=== PATIENT | female | born 1980 | race Caucasian/White ===

== ENCOUNTER → 2021-09-14 15:50 | Outpatient (BNVA) | payer BC, SELFPAY | PROVIDERS: Family Provider Family Medicine; PCP Physician Assistant; Visit Provider Nurse Practitioner Women's Health | DX: Z12.4 Encounter for screening for malignant neoplasm of cervix (principal); N93.9 Abnormal uterine and vaginal bleeding, unspecified | CPT/HCPCS: 84439; 84443; 84702; 85025; 87624 ==

== ENCOUNTER → 2021-09-29 14:26 | Outpatient (BNVA) | payer BC, SELFPAY | PROVIDERS: Family Provider Family Medicine; PCP Physician Assistant; Visit Provider Nurse Practitioner Women's Health | DX: N93.9 Abnormal uterine and vaginal bleeding, unspecified (principal) | CPT/HCPCS: 76830 ==

== ENCOUNTER → 2021-10-12 09:15 | Outpatient (BNVA) | payer BC, SELFPAY | PROVIDERS: Family Provider Family Medicine; PCP Physician Assistant; Visit Provider Nurse Practitioner Women's Health | DX: N93.9 Abnormal uterine and vaginal bleeding, unspecified (principal) | CPT/HCPCS: 81025; 88305 ==

== ENCOUNTER → 2021-12-08 14:30 | Outpatient (BNVA) | payer BC, SELFPAY | PROVIDERS: Family Provider Family Medicine; PCP Physician Assistant; Visit Provider Obstetrics & Gynecology | DX: Z01.812 Encounter for preprocedural laboratory examination (principal); N93.9 Abnormal uterine and vaginal bleeding, unspecified | CPT/HCPCS: 80053; 81000; 81025; 85025; 86850; 86900 ==

== ENCOUNTER 2021-12-13 11:14 | Day surgery (SDC) | payer BC, SELFPAY ==
[2021-12-12 10:39] VITALS: BMI 23.3
--- NOTE | 2021-12-12 10:52 | P.ANESASSM_ITS ---
Pre-Anesthetic Assessment Height/Weight: Height 1.68 m Weight 65.771 kg Operation Date: 12/13/21 12:50 Proposed Procedures p Hysteroscopy, dilation and curettage, polypectomy with Mysure 13658, 25661,37363,N93.9,N84.0(Not Applicable) - Esau Delgado MD s Dilation And Curettage (D&C)(Not Applicable) - Esau Delgado MD Familial anesthetic complications: None Social No alcohol and No tobacco Exam alert, oriented x 3, clear to auscultation bilaterally and regular rate & rhythm Airway Mallampati: Class II Dentition: full Anesthetic Plan ASA status: 1 Anesthesia: General Risk of > 500 ml blood loss (7ml/kg in children): No Medications/Allergies Home Medications Medication Instructions Recorded Confirmed Last Taken Type ibuprofen 200 mg capsule 200 mg PO Q6H PRN 10/12/21 12/12/21 Unknown History norethindrone acetate 5 mg tablet 5 mg PO DAILY #30 tab 10/12/21 12/12/21 Unknown Rx vortioxetine 10 mg tablet 10 mg PO DAILY #30 tab 10/12/21 12/12/21 Unknown Rx (Trintellix) Allergies Allergy/AdvReac Type Severity Reaction Status Date / Time No Known Allergies Allergy Verified 12/08/21 13:55 [facility], [facility] Anesthesia Medical History Migraine with aura No pertinent past medical history neghx: dm, htn, thyroid, dvt/pe PCP: Charito Shukla Surgical History No pertinent past surgical history Family History Father Hypercholesteremia Thyroid disease Mother Hypertension Thyroid disease parathyroid Denies family history of Colon cancer Ovarian cancer Diabetes Heart disease Breast cancer Uterine cancer Stroke Female Reproductive History Date of last menstrual period: 12/04/21 Data Anesthesia Cardiac Studies: No Data to Display
[2021-12-13 11:29] VITALS: BP 117/81; PULSE 83; RESP 18; TEMP 36.9; O2SAT 99
[2021-12-13] MEDS: sodium chloride 0.9% 500 ML IV (11:41)
[2021-12-13] MEDS: scopolamine 1.5 Patch 1 PATCH TRANSDERMA (11:42)
--- NOTE | 2021-12-13 11:48 | W.PM.OPSUD ---
Surgery/Procedure H&P Update DATE OF PROCEDURE: December 13, 2021 DATE H&P PERFORMED: 12/08/21 H&P UPDATE INFORMATION: I have reviewed H&P completed within last 30 days, I have examined patient prior to procedure and No changes to prior documentation PREOP DIAGNOSIS: Abnormal uterine bleeding, menorrhagia PLANNED PROCEDURE: Operation Date: 12/13/21 12:50 Proposed Procedures p Hysteroscopy, dilation and curettage, polypectomy with Mysure 74762, 98269,78729,N93.9,N84.0(Not Applicable) - Esau Delgado MD s Dilation And Curettage (D&C)(Not Applicable) - Esau Delgado MD
[2021-12-13] MEDS: sodium chloride 0.9% 1,000 ML 30 ML IV (12:01)
--- NOTE | 2021-12-13 12:49 | P.ANESUD_ITS ---
Pre-Anesthetic Update Pre-Anesthetic Assessment: Date of Surgery/Procedure: 12/13/21 Preop Eva gnosis: Abnormal uterine bleeding, menorrhagia Proposed Procedure: Operation Date: 12/13/21 12:50 Proposed Procedures p Hysteroscopy, dilation and curettage, polypectomy with Mysure 71745, [id number],N93.9,N84.0(Not Applicable) - Esau Delgado MD s Dilation And Curettage (D&C)(Not Applicable) - Esau Delgado MD Any changes to Pre-Anesthetic Assessment?: No Last Intake: Intake Last Liquid Date 12/12/21 Last Liquid Time 22:00 Last Solid Date 12/12/21 Last Solid Time 20:00 Vitals: Temperature 98.4 F 12/13/21 11:29 Pulse Rate 83 12/13/21 11:29 Respiratory Rate 18 12/13/21 11:29 Blood Pressure 117/81 12/13/21 11:29 Blood Pressure [place] n 93 12/13/21 11:29 Pulse Oximetry 99 12/13/21 11:29 Oxygen Delivery Me thod 12/13/21 11:29 Exam: Pre-Anes Outpt Exam: alert, oriented x 3, clear to auscultation bilaterally and regular rate & rhythm Cardiac Studies: No Data to Display
--- NOTE | 2021-12-13 15:44 | PM.OP ---
Operative Report Date of procedure: December 13, 2021 Pre-op diagnosis: Preop Diagnosis Abnormal uterine bleeding, menorrhagia Post-op diagnosis: Same as above Procedure done: Hysteroscopy with D&C via MyoSure Specimens removed/disposition: Endometrial curettings Surgeon: Esau Delgado MD Estimated blood loss (mL): 5 IV fluids (mL): 500 Complications: None Findings: Disordered endometrium Procedure: After informed consent, the risks included but were not limited to bleeding, infection, injury to internal organs. The patient was counseled on a possible laparotomy and on the potential need for hysterectomy. The patient expressed understanding of the risks involved, all questions were answered, and the patient consented to the procedure. The patient was taken to the operating room where general anesthesia was administered. She was placed in the dorsal lithotomy position and prepped and draped in sterile fashion. A time out procedure was performed. The patient was examined under anesthesia and found to have a normal uterus with normal adnexa. A sterile weight speculum was placed in the vagina. The uterus was then gently sounded to 8.5 cm, and the cervix was dilated. The 0 degrees MyoSure hysteroscope was advanced gently to the uterine fundus while visualizing the monitor. Survey of the uterine cavity showed: Disordered endometrium, the fundus shows proliferative endometrium; left ostium was visualized, and lateral wall with proliferative endometrium; right ostium visualized, and lateral wall with proliferative endometrium; anterior and posterior price are with proliferative endometrium; endocervical canal is normal. The MyoSure device was advanced and the direct visualization the endometrium was morcellated without complication. At the end of morcellation the fluid deficit was 120 mL and was estimated at approximately 100 mL were on the floor. There was minimal bleeding noted and the tenaculum removed with goad hemostasis noted. The patient tolerated the procedure well. The patient was taken to the recovery area in stable condition.
[2021-12-13 15:50] VITALS: BP 102/66; PULSE 113; RESP 20; TEMP 36.2; O2SAT 100
[2021-12-13 15:55] VITALS: BP 120/67; PULSE 108; RESP 25; O2SAT 100
[2021-12-13 15:59] VITALS: BP 115/73; PULSE 107; RESP 17; TEMP 36.2; O2SAT 99
[2021-12-13 16:11] VITALS: BP 122/73; PULSE 95; RESP 18; O2SAT 98
[2021-12-13] MEDS: ibuprofen 800 mg tablet PO (16:22)
--- NOTE | 2021-12-13 16:35 | ANE.PACU2 ---
Inpatient post-anesthesia follow up: Airway intact: Yes Vital signs: Temperature 97.1 F Pulse Rate 95 Respiratory Rate 18 Blood Pressure 122/73 Pulse Oximetry 98 Oxygen Delivery Me thod Room Air Oxygen Flow Rate 6 Fraction of Inspir ed Oxygen Hydration adequate: Yes Nausea and vomiting: No Pain level: 2 Mental status: Baseline
== END 2021-12-13 16:47 | disposition home or self-care (01) ==
PROVIDERS: PCP Physician Assistant; Visit Provider Obstetrics & Gynecology
PROC: 0UDB8ZZ Extraction of Endometrium, Via Natural or Artificial Opening Endoscopic (ICD-10-PCS; CPT 58558; principal; 2021-12-13 12:50)
PROC: (CPT 58120; 2021-12-13 12:50)
DX: N93.9 Abnormal uterine and vaginal bleeding, unspecified (principal)
CPT/HCPCS: 58558; 81025; 88305; J0690; J1100; J2405; J2704; J3010; J7030; J7040

== ENCOUNTER → 2022-01-26 08:40 | Outpatient (BNVA) | payer BC, SELFPAY | PROVIDERS: PCP Physician Assistant; Visit Provider Obstetrics & Gynecology | DX: Z30.9 Encounter for contraceptive management, unspecified (principal) | CPT/HCPCS: 81025 ==

== ENCOUNTER 2024-09-04 09:23 | Outpatient (CLI) | payer BC, SELFPAY ==
--- NOTE | 2024-09-04 09:40 | MM_ITS ---
WS: [id number] BILATERAL SCREENING DIGITAL TOMOSYNTHESIS MAMMOGRAM WITH CAD HISTORY: Z12.31 - Encounter for screening mammogram for malignant ... COMPARISON: None available. Bilateral CC and MLO views with tomosynthesis and synthetic mammography submitted. Computer aided detection analyzed. Breast composition: The breasts are heterogeneously dense, which may obscure small masses. No suspicious masses, microcalcifications or architectural distortion. MM/MM scr BI tomosynthesis [id number] IMPRESSION: BI-RADS: 1 - Negative FOLLOW UP: 1 Year Follow-up
== END 2024-09-04 09:24 | disposition home or self-care (01) ==
PROVIDERS: PCP Physician Assistant; Visit Provider Nurse Practitioner Women's Health
DX: Z12.31 Encounter for screening mammogram for malignant neoplasm of breast (principal); R92.333 Mammographic heterogeneous density, bilateral breasts
CPT/HCPCS: 77063; 77067